=== PATIENT | male | born 1975 | race Caucasian/White ===

== ENCOUNTER 2020-03-29 23:32 | Emergency (ER) | payer SELFPAY ==
[~2020-03-29] VITALS: Ht 180.3 cm; Wt 79.2 kg
[2020-03-29 23:36] VITALS: BP 149/92
[2020-03-30] MEDS ORDERED: LORazepam 1MG TABLET ONE (00:14)
[2020-03-30] MEDS ORDERED: VENLAFAXINE 75MG TABLET PO ONE (00:20)
--- NOTE | 2020-03-30 00:27 | NUR ---
Patient mother call Melody Kelley. Patient stated its ok to release information to her only. Patient mom is concerned about patient going back out on the street. Provider stated that she would talk to the mother regarding this.
[2020-03-30] MEDS ORDERED: LORazepam 1MG TABLET PO ONE (00:30)
[2020-03-30 00:59] LABS: BASOPHILS % (AUTO) 1 % (0-1); EOSINOPHILS % (AUTO) 4 % (1-7); LYMPHOCYTES % (AUTO) 19 % (22-44); MEAN CORPUSCULAR HEMOGLOBIN 29.6 pg (27.5-34.5); MEAN CORPUSCULAR HGB CONC 33.8 g/dL (33.2-36.2); MEAN PLATELET VOLUME 7.7 fL (7.4-10.4); MONOCYTES % (AUTO) 12 % (2-9); NEUTROPHILS % (AUTO) 64 % (42-75); PLATELET COUNT 235 x10^3/uL (130-400); RED BLOOD COUNT 5.07 x10^6/uL (4.38-5.82); RED CELL DISTRIBUTION WIDTH 12.6 % (9.4-14.8)
[2020-03-30 01:05] LABS: MD NO
[2020-03-30 01:09] LABS: ALBUMIN 4.4 g/dL (3.4-5.0); ANION GAP 8 mmol/L (5-15); CALCIUM 9.1 mg/dL (8.5-10.1); CHLORIDE 104 mmol/L (98-107); CREATININE 0.98 mg/dL (0.7-1.3)
[2020-03-30 01:10] LABS: SALICYLATE LEVEL < 1.7 mg/dL (2.8-20.0)
[2020-03-30 02:09] LABS: AMPHETAMINE SCREEN, URINE Positive (Negative); BARBITURATE SCREEN, URINE Negative (Negative); BENZODIAZEPINE SCREEN, URINE Negative (Negative); CANNABINOID SCREEN, URINE Negative (Negative); COCAINE SCREEN, URINE Negative (Negative); METHADONE SCREEN, URINE Negative (Negative); OPIATE SCREEN, URINE Positive (Negative)
[2020-03-30] MEDS ORDERED: LORazepam 2 MG/ML, 1ML ONE (02:25)
[2020-03-30] MEDS ORDERED: LORazepam 2 MG/ML, 1ML IM ONE (02:30)
--- NOTE | 2020-03-30 02:50 | NUR ---
telepsych completed, waiting on fax
--- NOTE | 2020-03-30 03:55 | NUR ---
PATIENT TO BE DC TO [facility].
== END 2020-03-30 04:20 | disposition home or self-care (01) ==
LOC: ED 03-30 03:15
DX: F32.9 Major depressive disorder, single episode, unspecified (principal); F15.10 Other stimulant abuse, uncomplicated; F11.129 Opioid abuse with intoxication, unspecified; F19.159 Other psychoactive substance abuse with psychoactive substance-induced psychotic disorder, unspecified; R44.0 Auditory hallucinations; F17.290 Nicotine dependence, other tobacco product, uncomplicated; Z59.0 Homelessness; Z91.14 Patient's other noncompliance with medication regimen
CPT/HCPCS: 36415; 80048; 80307; 82040; 85025; 96372; 99284; J2060

== ENCOUNTER 2020-08-30 08:07 | Emergency (ER) | payer MEDICAID ==
[~2020-08-30] VITALS: Ht 180.3 cm; Wt 86.0 kg
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
--- NOTE | 2020-08-30 08:27 | NUR ---
PT STATES HE WOULD LIKE TO GO TO [facility] UPON DISCHARGE.
[2020-08-30] MEDS ORDERED: LORazepam 1MG TABLET ONE (08:29)
[2020-08-30] MEDS ORDERED: HYDROcodone/APAP 5/325 TABLET ONE (08:29)
[2020-08-30] MEDS ORDERED: HYDROcodone/APAP 5/325 TABLET PO ONE (08:30)
[2020-08-30] MEDS ORDERED: LORazepam 1MG TABLET PO ONE (08:30)
--- NOTE | 2020-08-30 08:39 | NUR ---
XRAY AT BEDSIDE
--- NOTE | 2020-08-30 09:16 | NUR ---
PT ASLEEP. RESPIRATIONS EVEN AND UNLABORED. VSS.
--- NOTE | 2020-08-30 09:22 | NUR ---
DR. HOWARD AT BEDSIDE TO DISCUSS XRAY RESULTS. VSS.
--- NOTE | 2020-08-30 09:34 | NUR ---
EMT TO BEDSIDE FOR SPLINT
--- NOTE | 2020-08-30 09:35 | NUR ---
PT GIVEN RESOURCES FOR [facility], MEDICATION ASSISTANCE, AND SHELTERS.
[2020-08-30 10:09] VITALS: BP 115/67
--- NOTE | 2020-08-30 10:16 | NUR ---
Patient given discharge instructions and they have confirmed that they understand the instructions. Patient ambulatory with steady gait. Given dana owens for safe discharge.
== END 2020-08-30 10:19 | disposition home or self-care (01) ==
LOC: ED 08:46
DX: S62.362A Nondisplaced fracture of neck of third metacarpal bone, right hand, initial encounter for closed fracture (principal); S62.364A Nondisplaced fracture of neck of fourth metacarpal bone, right hand, initial encounter for closed fracture; F41.1 Generalized anxiety disorder; F17.210 Nicotine dependence, cigarettes, uncomplicated; X58.XXXA Exposure to other specified factors, initial encounter; Y93.89 Activity, other specified; Y92.009 Unspecified place in unspecified non-institutional (private) residence as the place of occurrence of the external cause; Y99.8 Other external cause status
CPT/HCPCS: 29125; 99283

== ENCOUNTER 2020-09-10 21:09 | Emergency (ER) | payer MEDICAID ==
[~2020-09-10] VITALS: Ht 180.3 cm; Wt 84.0 kg
[2020-09-10 21:14] VITALS: BP 117/59
[2020-09-10] MEDS ORDERED: KETOROLAC 30 MG/1 ML IM ONE (22:30)
[2020-09-10] MEDS ORDERED: KETOROLAC 30 MG/1 ML ONE (22:40)
--- NOTE | 2020-09-10 22:50 | NUR ---
PT MEDICATED PER [facility], AWAITING XRAY.
[2020-09-10] MEDS ORDERED: HYDROcodone/APAP 5/325 TABLET ONE (23:45)
[2020-09-11] MEDS ORDERED: HYDROcodone/APAP 5/325 TABLET PO ONE
== END 2020-09-10 23:52 | disposition home or self-care (01) ==
LOC: ED 22:56
DX: S62.322A Displaced fracture of shaft of third metacarpal bone, right hand, initial encounter for closed fracture (principal); S62.324A Displaced fracture of shaft of fourth metacarpal bone, right hand, initial encounter for closed fracture; S16.1XXA Strain of muscle, fascia and tendon at neck level, initial encounter; R07.89 Other chest pain; X58.XXXA Exposure to other specified factors, initial encounter; Y93.89 Activity, other specified; Y92.89 Other specified places as the place of occurrence of the external cause; Y99.8 Other external cause status
CPT/HCPCS: 71101; 72125; 73130; 96372; 99284; J1885